=== PATIENT | male | born 1990 | race Hispanic/Latino ===

== ENCOUNTER 2019-03-01 09:41 | Emergency (ER) | payer SELFPAY ==
[~2019-03-01] VITALS: Ht 162.6 cm; Wt 57.6 kg
[2019-03-01] MEDS ORDERED: KETOROLAC TROMETHAMINE 60 MG/2 ML VIAL IM ONE (12:30)
[2019-03-01] MEDS ORDERED: ORPHENADRINE CITRATE 30 MG/ML VIAL IM ONE (12:30)
[2019-03-01] MEDS ORDERED: DEXAMETHASONE SOD PHOS 10 MG/1 ML VIAL IM ONE (12:30)
[2019-03-01 13:17] LABS: BILIRUBIN,URINE NEGATIVE (NEGATIVE); CLARITY,URINE CLEAR (CLEAR); COLOR,URINE YELLOW (YELLOW); KETONES,URINE NEGATIVE (NEGATIVE); LEUKOCYTE ESTERASE ,URINE NEGATIVE (NEGATIVE); NITRITE,URINE NEGATIVE (NEGATIVE); PROTEIN,URINE DIPSTICK NEGATIVE (NEGATIVE); URINE UROBILINOGEN 0.2 mg/dL (0.2 - 1)
--- NOTE | 2019-03-01 14:35 | Diagnostic Imaging Report ---
PROCEDURE:TESTICULAR ULTRASOUND COMPARISON:None. INDICATIONS:TESTICULAR PAIN FINDINGS: Multiple sagittal and axial images were obtained of the scrotum. Doppler examination was performed bilaterally. The right testicle measures 3.9 x 2.5 x 3.4 cm. It is of normal echogenicity without focal masses. The vascular supply is within normal limits, without evidence of testicular torsion. The right epididymis measures approximately 1.0 x 0.7 x 0.6 cm and is within normal limits. No hydrocele or varicocele is identified. There is a small right spermatocele measuring 0.2 x 0.2 x 0.4 cm. The left testicle measures 3.5 x 2.3 x 3.4 cm. It is within normal echogenicity without focal masses. The vascular supply is within normal limits, without evidence for torsion. The left epididymis measures approximately 0.6 x 0.6 x 0.6 cm and is within normal limits. No hydrocele or varicocele is identified. There is bilateral microlithiasis without evidence of a mass. There is a left inguinal hernia. Overlying scrotal tissue is within normal limits. Normal vascular flow to both testes. CONCLUSION: 1. Bilateral microlithiasis of the testes-no mass identified. 2. Small right spermatocele. 3. Left inguinal hernia. Sal Gan D.O. Dictated by: Sal Gan D.O. on 03/01/2019 at 14:39 Electronically approved by: Sal Gan D.O. on 03/01/2019 at 14:39
--- NOTE | 2019-03-01 14:37 | Diagnostic Imaging Report ---
PROCEDURE:TESTICULAR DOPPLER ULTRASOUND COMPARISON:None. INDICATIONS:TESTICULAR PAIN FINDINGS: Multiple sagittal and axial images were obtained of the scrotum. Doppler examination was performed bilaterally. There is normal vascular blood flow to both testes and the bilateral epididymidi. CONCLUSION: Normal vascular blood flow to both testes. Sal Gan D.O. Dictated by: aSl Gan D.O. on 03/01/2019 at 14:41 Electronically approved by: Sal Gan D.O. on 03/01/2019 at 14:41
== END 2019-03-01 15:42 | disposition home or self-care (01) ==
LOC: ER 09:41
DX: N50.812 Left testicular pain (principal); S39.011A Strain of muscle, fascia and tendon of abdomen, initial encounter; K40.90 Unilateral inguinal hernia, without obstruction or gangrene, not specified as recurrent; X50.0XXA Overexertion from strenuous movement or load, initial encounter; Y99.0 Civilian activity done for income or pay
CPT/HCPCS: 76870; 81001; 93976; 99283; J1100; J1885; J2360